=== PATIENT | female | born 1960 | race Caucasian/White ===

== ENCOUNTER → 2017-01-27 | Outpatient (CLI) | payer OTHER ==
--- NOTE | 2017-01-28 07:25 | Diagnostic Imaging Report ---
Indications: Abdominal pain, gallstones Technique: Coronal and axial T2-weighted single shot fast spin-echo breath-hold, coronal and coronal oblique 2-D thick slab and 3-D MRCP, axial T2-weighted fat-saturated fast spin-echo and fat saturated 2-D fiesta sequences of the abdomen performed without IV gadolinium administration. Findings: Comparison: None Gallbladder is mildly distended, contains a single 1 cm multiple smaller signal void filling defects. No obvious mural thickening. Mild adjacent fluid, in continuity with mild perihepatic ascites. Additional ascites adjacent to spleen. Bile ducts mildly dilated, common bile duct maximum 10 mm in diameter, tapers to normal caliber in the pancreatic head.. No intraluminal filling defect or associated mass. Pancreatic duct is nondilated. Liver enlarged, 21 cm in length in the right mid clavicular line and extending into the left subdiaphragmatic region. Diffusely heterogeneous parenchymal signal without discrete focal abnormality. No obvious surface contour nodularity. Spleen 14 cm. No focal abnormality. Splenic vein is not clearly identified. Portal vein patent but small in caliber. Hepatic arteries hypertrophied. 1 cm circumscribed fluid signal focus interpolar sinus left kidney. Latter otherwise unremarkable. Pancreas, adrenal glands, right kidney, remainder visualized abdominal anatomy unremarkable. Mild degenerative changes in lumbar, lower thoracic spine. IMPRESSION: Cholelithiasis Mild bile duct dilation without obvious obstructive etiology. No evidence of choledocholithiasis. Mild ascites Hepatosplenomegaly Hepatic parenchymal heterogeneity most likely geographic fatty infiltration. Other chronic hepatocellular disease must also be considered. No morphologic evidence of cirrhosis. Correlate clinically. Suggestion of splenic vein occlusion. Portal vein probably patent but small caliber. Hepatic arterial hypertrophy may be compensatory. Left renal small parapelvic cyst Degenerative spondylosis
== END | disposition home or self-care (01) ==
LOC: MRI 17:36
DX: R10.9 Unspecified abdominal pain (principal); K80.20 Calculus of gallbladder without cholecystitis without obstruction; R18.8 Other ascites; R16.2 Hepatomegaly with splenomegaly, not elsewhere classified; N28.1 Cyst of kidney, acquired; M47.9 Spondylosis, unspecified
CPT/HCPCS: 74181